=== PATIENT | male | born 1990 ===

== ENCOUNTER 2021-09-03 00:07 | Emergency (ER) | payer OTHER ==
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
[2021-09-03 00:56] VITALS: BP 130/70
== END 2021-09-03 02:55 ==
LOC: ED 00:07 → EEVIPCON 00:07 → ED 02:55
DX: T82.868A Thrombosis due to vascular prosthetic devices, implants and grafts, initial encounter (principal); Z98.890 Other specified postprocedural states; Y83.8 Other surgical procedures as the cause of abnormal reaction of the patient, or of later complication, without mention of misadventure at the time of the procedure; Y92.89 Other specified places as the place of occurrence of the external cause
CPT/HCPCS: 99283